=== PATIENT | female | born 1950 | race Two or more races ===

== ENCOUNTER 2018-01-15 20:12 | Outpatient (CLI) | payer MEDICARE ==
[2018-01-18 09:23] VITALS: BMI 36.6
[2018-01-18] MEDS ORDERED: LEVAQUIN500 MG PO (13:41)
[2018-01-18] MEDS ORDERED: FLAGYL500 MG PO (13:42)
== END 2018-01-15 22:44 | disposition other institution (70) ==
LOC: D.OPS 20:12
DX: R50.9 Fever, unspecified (principal); R19.7 Diarrhea, unspecified; R10.9 Unspecified abdominal pain; R79.89 Other specified abnormal findings of blood chemistry; R74.8 Abnormal levels of other serum enzymes

== ENCOUNTER 2018-05-21 17:32 | Emergency (ER) | payer MEDICARE ==
[~2018-05-21] VITALS: Ht 157.5 cm; Wt 90.9 kg
[~2018-05-21 17:32] MED LIST: FLAGYL500 MG PO; LEVAQUIN500 MG PO
[2018-05-21 17:38] VITALS: Ht 157.5 cm; Wt 90.9 kg
[2018-05-21 18:10] LABS: BASOPHILS 0.1 % (0-2); EOSINOPHILS 0.6 % (0-7); HEMATOCRIT 39.6 % (36.0-48.0); HEMOGLOBIN 13.5 g/dL (12-16); IMMATURE GRANULOCYTES 0.3 % (0-5); LYMPHOCYTES 14.5 % (15-50); MCH 31.8 pg (26.0-34.0); MCHC 34.1 g/dL (31.0-37.0); MCV 93.4 fL (80.0-100.0); MEAN PLATELET VOLUME 9.7 fL (7.4-10.4); NEUTROPHILS 78.5 % (40-80); PLATELET COUNT 252 10x3/uL (130-400); RBC 4.24 10x6/uL (4.00-5.40); RDW 12.9 % (11.5-14.5); WBC 10.6 10x3/uL (4.8-10.8)
[2018-05-21 18:16] LABS: APPEARANCE HAZY (CLEAR); BILIRUBIN NEGATIVE (NEGATIVE); COLOR YELLOW (YELLOW); GLUCOSE NEGATIVE (NEGATIVE); KETONE NEGATIVE (NEGATIVE); NITRITE NEGATIVE (NEGATIVE); PROTEIN 1+ mg/dL (NEGATIVE); SPECIFIC GRAVITY 1.015 (1.005-1.020)
[2018-05-21 18:17] LABS: BACTERIA MANY /hpf (NONE SEEN); RED CELLS - URINE 0-5 /hpf (0-5); WHITE CELLS - URINE >50 /hpf (0-5)
[2018-05-21 18:28] LABS: ALBUMIN 3.3 g/dL (3.4-5.0); ANION GAP 12.3 mmol/L (8-16); BILIRUBIN - TOTAL 0.86 mg/dL (0.2-1.3); CARBON DIOXIDE 27.7 mmol/L (21.0-32.0); PROTEIN - SERUM 8.7 g/dL (6.4-8.2)
[2018-05-21 20:07] LABS: AMYLASE - SERUM 25 U/L (25-115); LIPASE 191 U/L (73-393)
[2018-05-21] MEDS ORDERED: OMNICEF300 MG PO (23:56)
[2018-05-22 00:15] VITALS: BP 128/86
== END 2018-05-22 00:19 | disposition home or self-care (01) ==
LOC: D.ER 17:32
PROVIDERS: Family Medicine
DX: N39.0 Urinary tract infection, site not specified (principal); R51 Headache; J02.9 Acute pharyngitis, unspecified

== ENCOUNTER 2018-09-27 17:09 | Inpatient (IN) | payer MEDICARE ==
[~2018-09-27] VITALS: Ht 157.5 cm; Wt 90.2 kg
[~2018-09-27 17:09] MED LIST changes: +OMNICEF300 MG PO
[2018-09-27 17:53] LABS: HEMATOCRIT 41.4 % (36.0-48.0); HEMOGLOBIN 13.8 g/dL (12-16); MCH 31.2 pg (26.0-34.0); MCHC 33.3 g/dL (31.0-37.0); MCV 93.5 fL (80.0-100.0); MEAN PLATELET VOLUME 9.7 fL (7.4-10.4); PLATELET COUNT 288 10x3/uL (130-400); RBC 4.43 10x6/uL (4.00-5.40); RDW 12.7 % (11.5-14.5)
[2018-09-27 17:54] LABS: ALBUMIN 3.9 g/dL (3.4-5.0); ALKALINE PHOSPHATASE 209 U/L (46-116); ALT (SGPT) 138 U/L (10-68); BILIRUBIN - TOTAL 1.28 mg/dL (0.2-1.3); CALC OSMOLALITY 282 mosm/kg (275-300); CALCIUM 9.9 mg/dL (8.5-10.1); CARBON DIOXIDE 27.7 mmol/L (21.0-32.0); CHLORIDE - SERUM 101 mmol/L (98-107); GLUCOSE 174 mg/dL (74-106); POTASSIUM - SERUM 4.1 mmol/L (3.5-5.1); PROTEIN - SERUM 8.8 g/dL (6.4-8.2); SODIUM 139 mmol/L (136-145); UREA NITROGEN 16 mg/dL (7-18); eGFR NON AFRICAN AMERICAN 58 mL/min (90-120)
[2018-09-27 17:58] LABS: AMYLASE - SERUM 68 U/L (25-115); LIPASE 437 U/L (73-393); TROPONIN-I < 0.017 ng/mL (0.000-0.060)
[2018-09-27 18:04] LABS: APPEARANCE CLEAR (CLEAR); BILIRUBIN NEGATIVE (NEGATIVE); COLOR DK YELLOW (YELLOW); GLUCOSE NEGATIVE (NEGATIVE); KETONE NEGATIVE (NEGATIVE); NITRITE NEGATIVE (NEGATIVE); PH 6.5 (5.0-6.0); PROTEIN TRACE mg/dL (NEGATIVE); SPECIFIC GRAVITY 1.015 (1.005-1.020); UROBILINOGEN NORMAL (NORMAL)
[2018-09-27 18:05] LABS: BACTERIA MANY /hpf (NONE SEEN); EPITHELIAL CELLS 0-5 /hpf (0-5); RED CELLS - URINE OCC /hpf (0-5); WHITE CELLS - URINE 0-5 /hpf (0-5)
[2018-09-27 18:25] LABS: EOSINOPHILS 2 % (0-7); LYMPHOCYTES 5 % (15-50); MONOCYTES 5 % (2-11); NEUTROPHILS 88 % (40-80)
[2018-09-27 18:26] LABS: PLATELET ESTIMATE NORMAL
[2018-09-28 01:14] VITALS: BP 153/85
[2018-09-28 05:54] VITALS: BP 153/82
[2018-09-28 06:16] VITALS: BP 153/85; BMI 36.3
[2018-09-28 06:39] LABS: ANION GAP 14.1 mmol/L (8-16); BILIRUBIN - TOTAL 2.05 mg/dL (0.2-1.3); CALCIUM 8.7 mg/dL (8.5-10.1); CARBON DIOXIDE 25.4 mmol/L (21.0-32.0); CREATININE - SERUM 0.9 mg/dL (0.6-1.3); POTASSIUM - SERUM 4.5 mmol/L (3.5-5.1); PROTEIN - SERUM 7.6 g/dL (6.4-8.2)
[2018-09-28 07:19] LABS: BASOPHILS 0.1 % (0-2); EOSINOPHILS 0.1 % (0-7); HEMATOCRIT 37.3 % (36.0-48.0); HEMOGLOBIN 12.4 g/dL (12-16); IMMATURE GRANULOCYTES 0.3 % (0-5); LYMPHOCYTES 5.6 % (15-50); MCH 31.2 pg (26.0-34.0); MCHC 33.2 g/dL (31.0-37.0); MCV 93.7 fL (80.0-100.0); MEAN PLATELET VOLUME 10.1 fL (7.4-10.4); MONOCYTES 3.4 % (2-11); NEUTROPHILS 90.5 % (40-80); PLATELET COUNT 235 10x3/uL (130-400); RBC 3.98 10x6/uL (4.00-5.40); RDW 12.8 % (11.5-14.5); WBC 19.3 10x3/uL (4.8-10.8)
[2018-09-28 08:44] VITALS: BP 146/73
[2018-09-28 13:07] VITALS: BP 136/69
[2018-09-28 14:02] VITALS: BMI 36.2
[2018-09-28 15:45] VITALS: Ht 157.5 cm; Wt 90.2 kg
[2018-09-28 17:01] LABS: APTT 34.5 SECONDS (22.8-39.4); INR 1.28 (0.85-1.17); PROTIME 15.5 SECONDS (11.6-15.0)
[2018-09-28 20:00] VITALS: BP 152/80
[2018-09-29] VITALS: BP 137/78
[2018-09-29 04:56] VITALS: BP 130/73
[2018-09-29 06:00] LABS: BASOPHILS 0.2 % (0-2); EOSINOPHILS 2.2 % (0-7); HEMATOCRIT 35.2 % (36.0-48.0); HEMOGLOBIN 11.6 g/dL (12-16); IMMATURE GRANULOCYTES 0.4 % (0-5); LYMPHOCYTES 12.1 % (15-50); MCH 31.3 pg (26.0-34.0); MCV 94.9 fL (80.0-100.0); MEAN PLATELET VOLUME 9.9 fL (7.4-10.4); MONOCYTES 6.2 % (2-11); NEUTROPHILS 78.9 % (40-80); PLATELET COUNT 227 10x3/uL (130-400); RBC 3.71 10x6/uL (4.00-5.40); RDW 12.8 % (11.5-14.5)
[2018-09-29 06:15] LABS: HEPATITIS C ANTIBODY <0.1 S/CO RAT (0.0-0.9)
[2018-09-29 06:20] LABS: ALBUMIN 2.6 g/dL (3.4-5.0); ALKALINE PHOSPHATASE 149 U/L (46-116); BILIRUBIN - TOTAL 0.95 mg/dL (0.2-1.3); CALCIUM 8.2 mg/dL (8.5-10.1); CARBON DIOXIDE 27.1 mmol/L (21.0-32.0); CHLORIDE - SERUM 103 mmol/L (98-107); CHOL - HDL RATIO 2.4 ratio (2.3-4.1); CHOLESTEROL, TOTAL 153 mg/dL (0-200); CREATININE - SERUM 0.8 mg/dL (0.6-1.3); GLUCOSE 102 mg/dL (74-106); HDL CHOLESTEROL 64 mg/dL (32-96); INR 1.31 (0.85-1.17); LDL CHOLESTEROL 80 mg/dL (0-100); LDL-HDL RATIO 1.3 ratio (1.5-3.5); LIPASE 109 U/L (73-393); PROTIME 15.7 SECONDS (11.6-15.0); SODIUM 138 mmol/L (136-145); TRIGLYCERIDE 46 mg/dL (30-200); eGFR NON AFRICAN AMERICAN 75 mL/min (90-120)
[2018-09-29 06:23] LABS: WBC 9.7 10x3/uL (4.8-10.8)
[2018-09-29 06:28] LABS: ALT (SGPT) 123 U/L (10-68); CALC OSMOLALITY 273 mosm/kg (275-300); POTASSIUM - SERUM 3.8 mmol/L (3.5-5.1); UREA NITROGEN 8 mg/dL (7-18)
[2018-09-29 12:43] VITALS: BP 138/77
[2018-09-29 16:48] VITALS: BP 143/75
[2018-09-29 20:37] VITALS: BP 124/82
[2018-09-30 00:07] VITALS: BP 162/78
[2018-09-30 04:50] VITALS: BP 141/84
[2018-09-30 06:33] LABS: BASOPHILS 0.1 % (0-2); EOSINOPHILS 2.8 % (0-7); HEMATOCRIT 33.8 % (36.0-48.0); HEMOGLOBIN 11.1 g/dL (12-16); IMMATURE GRANULOCYTES 0.3 % (0-5); LYMPHOCYTES 20.1 % (15-50); MCH 30.9 pg (26.0-34.0); MCHC 32.8 g/dL (31.0-37.0); MCV 94.2 fL (80.0-100.0); MEAN PLATELET VOLUME 9.7 fL (7.4-10.4); MONOCYTES 7.3 % (2-11); NEUTROPHILS 69.4 % (40-80); PLATELET COUNT 210 10x3/uL (130-400); RBC 3.59 10x6/uL (4.00-5.40); RDW 12.6 % (11.5-14.5)
[2018-09-30 06:35] LABS: WBC 6.8 10x3/uL (4.8-10.8)
[2018-09-30 06:42] LABS: ALBUMIN 2.6 g/dL (3.4-5.0); ALKALINE PHOSPHATASE 131 U/L (46-116); ALT (SGPT) 79 U/L (10-68); BILIRUBIN - TOTAL 0.51 mg/dL (0.2-1.3); CALC OSMOLALITY 276 mosm/kg (275-300); CALCIUM 8.3 mg/dL (8.5-10.1); CARBON DIOXIDE 26.7 mmol/L (21.0-32.0); CHLORIDE - SERUM 106 mmol/L (98-107); CREATININE - SERUM 0.8 mg/dL (0.6-1.3); GLUCOSE 98 mg/dL (74-106); POTASSIUM - SERUM 3.6 mmol/L (3.5-5.1); PROTEIN - SERUM 6.9 g/dL (6.4-8.2); SODIUM 140 mmol/L (136-145); UREA NITROGEN 7 mg/dL (7-18); eGFR NON AFRICAN AMERICAN 75 mL/min (90-120)
[2018-09-30 09:03] VITALS: BP 153/83
[2018-09-30 12:12] VITALS: BP 159/74
[2018-09-30] MEDS ORDERED: LEVAQUIN750 MG PO (13:01)
[2018-09-30] MEDS ORDERED: PROTONIX40 MG PO (13:02)
[2018-09-30] MEDS ORDERED: FLAGYL500 MG PO (13:02)
--- NOTE | 2018-09-30 14:43 | MORECARE ---
CASE MANAGEMENT DISCHARGE SUMMARY PATIENT: MELINDA BAEZA UNIT: [id number] ADM DATE: 09/27/18 AGE: 68 : 50 SEX: F ROOM/BED: D.7047 AUTHOR: MARIO LAUGHLIN PHYSICIAN: REFERRING PHYSICIAN: ELIJAH ANNE MD DATE OF SERVICE: 09/30/18 Discharge Plan Patient Name: MELINDA BAEZA Facility: [facility]:[place] : 1950 Planned Disposition: Home Anticipated Discharge Date: 09/30/18 Discharge Date: Expected LOS: 3 Initial Reviewer: [email or web address] Initial Review Date: 09/27/2018 Generated: 09/30/18 3:43 pm Comments DCP- Discharge Planning Updated by [email or web address]: Regla Stephen on 09/30/18 1:[address] Patient Name: MELINDA BAEZA Admission Status: ER Accout number: [id number] Admission Date: 09-27-2018 : 1950 Admission Diagnosis:NONSPEC ELEV OF LEVELS OF TRANSAMNS LACTIC ACID DEHYD Attending: ELIJAH ANNE Current LOS: 3 Anticipated DC Date: 09-30-2018 Planned Disposition: Home Primary Insurance: MEDICARE IP PART B ONLY Discharge Planning Comments: CM MET WITH PATIENT AND FAMILY ABOUT DC PLANNING NEEDS. PLANS TO DC HOME WITH FAMILY. SAFE ENVIRONMENT. DENIES ANY NEEDS AT THIS TIME. CM WILL FOLLOW AND ASSIST NEEDED WITH DC PLANNING/NEEDS. Hydraulic Engineer: Regla Stephen DCPIA - Discharge Planning Initial Assessment Updated by [email or web address]: Regla Stephen on 09/30/18 2:38 pm * Is the patient Alert and Oriented? Yes * PCP NONE YET * Pharmacy [facility] * Preadmission Environment Home with Family * ADLs Independent * Additional services required to return to the preadmission environment? No * Can the patient safely return to the preadmission environment? Yes * Has this patient been hospitalized within the prior 30 days at any hospital? No Patient Name: MELINDA BAEZA Page [phone] at 1443 All edits/amendments must be made on the electronic document DICTATION DATE: 09/30/18 1443 FISH CAKE MAKER: MIKE 09/30/18 1443 RPT#: [id number] [place] DATE: STATUS: ADM IN [facility] [address] [place] [address] END OF REPORT
--- NOTE | 2018-10-03 11:49 | MORECARE ---
CASE MANAGEMENT DISCHARGE SUMMARY PATIENT: MELINDA BAEZA UNIT: [id number] ADM DATE: 09/27/18 AGE: 68 : 50 SEX: F ROOM/BED: D.2806 AUTHOR: MARIO LAUGHLIN PHYSICIAN: REFERRING PHYSICIAN: ELIJAH ANNE MD DATE OF SERVICE: 10/03/18 Discharge Plan Patient Name: MELINDA BAEZA Facility: [facility]:[place] : 1950 Planned Disposition: Home Anticipated Discharge Date: 09/30/18 Discharge Date: 09/30/2018 Expected LOS: 3 Initial Reviewer: [email or web address] Initial Review Date: 09/27/2018 Generated: 10/03/18 12:49 pm Comments DCP- Discharge Planning Updated by [email or web address]: Regla Stephen on 09/30/18 1:[address] Patient Name: MELINDA BAEZA Admission Status: ER Accout number: [id number] Admission Date: 09-27-2018 : 1950 Admission Diagnosis:NONSPEC ELEV OF LEVELS OF TRANSAMNS LACTIC ACID DEHYD Attending: ELIJAH ANNE Current LOS: 3 Anticipated DC Date: 09-30-2018 Planned Disposition: Home Primary Insurance: MEDICARE IP PART B ONLY Discharge Planning Comments: CM MET WITH PATIENT AND FAMILY ABOUT DC PLANNING NEEDS. PLANS TO DC HOME WITH FAMILY. SAFE ENVIRONMENT. DENIES ANY NEEDS AT THIS TIME. CM WILL FOLLOW AND ASSIST NEEDED WITH DC PLANNING/NEEDS. Knitting Supervisor: Regla Stephen DCPIA - Discharge Planning Initial Assessment Updated by [email or web address]: Regla Stephen on 09/30/18 2:38 pm * Is the patient Alert and Oriented? Yes * PCP NONE YET * Pharmacy [facility] * Preadmission Environment Home with Family * ADLs Independent * Additional services required to return to the preadmission environment? No * Can the patient safely return to the preadmission environment? Yes * Has this patient been hospitalized within the prior 30 days at any hospital? No Last DP export: 09/30/18 1:43 Patient Name: MELINDA BAEZA Page [phone] at 1149 All edits/amendments must be made on the electronic document DICTATION DATE: 10/03/18 1149 MATERIALS MANAGEMENT MANAGER: DM 10/03/18 1149 RPT#: [id number] DC DATE:09/30/18 STATUS: DIS IN [facility] [address] [place] [address] END OF REPORT
== END 2018-09-30 15:35 | disposition home or self-care (01) | DRG 439 ==
LOC: D.ER 17:09 → D.EDHOLD 21:41 → D.M2 21:41
PROVIDERS: Family Medicine; Internal Medicine Gastroenterology; ADMIT Internal Medicine Nephrology
DX: K85.90 Acute pancreatitis without necrosis or infection, unspecified (principal); N39.0 Urinary tract infection, site not specified; K76.0 Fatty (change of) liver, not elsewhere classified; R74.0 Nonspecific elevation of levels of transaminase and lactic acid dehydrogenase [LDH]; I10 Essential (primary) hypertension